=== PATIENT | female | born 1975 | race Caucasian/White ===

== ENCOUNTER 2019-07-12 18:57 | Emergency (ER) | payer MEDICAID ==
[~2019-07-12] VITALS: Ht 147.3 cm; Wt 65.5 kg
[~2019-07-12 18:57] MED LIST: ACET-141 PO; ACET500C5 PO; AMOX500C2 PO; CETI10CA PO; FLUT9.9S NASAL; IBUP-1542 PO; IBUP-1561 PO
[2019-07-12 19:08] VITALS: PULSE 66; RESP 18; Ht 147.3 cm; Wt 65.5 kg
[2019-07-12] MEDS ORDERED: KETOROLAC 15 MG INJ IM STA (20:19)
[2019-07-12 22:22] VITALS: BP 186/96
== END 2019-07-12 22:23 | disposition home or self-care (01) ==
LOC: FTE 18:57
DX: I10 Essential (primary) hypertension (principal)
CPT/HCPCS: 81025; 96372; J1885; Z7502